=== PATIENT | female | born 1995 | race Two or more races ===

== ENCOUNTER 2017-05-04 22:59 | Emergency (ER) | payer OTHER ==
[2017-05-05] MEDS ORDERED: NORMAL SALINE 1000 ML 1,000 ML IV ONE ×2 (00:09→02:08)
--- NOTE | 2017-05-05 00:14 | ER Document Report ---
ED Medical Screen (RME) - General Chief Complaint: Nausea/Vomiting Stated Complaint: NAUSEA, VOMITING Time Seen by Provider: 05/04/17 23:58 Notes: 21-year-old female, comes by EMS for chief complaint of multiple episodes of vomiting and diarrhea today along with an episode where she got out of the shower, felt lightheaded, fell onto a step stool, and believes she passed out. Relative at bedside states that she had difficulty getting patient up and she thinks she was passed out. Patient has vomited twice since as well. Patient reports a mild headache. She denies fever. She had a recent endoscopy and colonoscopy with no concerning abnormalities. TRAVEL OUTSIDE OF THE [place] IN LAST 30 DAYS: No - Related Data Allergies/Adverse Reactions: No Known Allergies Allergy (Unverified 05/04/17 23:15) Past Medical History Renal/ Medical History: Denies: Hx Peritoneal Dialysis Physical Exam - Vital signs Vitals: Temp Pulse Resp BP Pulse Ox 99.1 F 113 H 18 119/56 L 100 05/04/17 23:07 05/04/17 23:07 05/04/17 23:07 05/04/17 23:07 05/04/17 23:07 - Cardiovascular Rhythm: Regular, Tachycardia Heart sounds: Normal auscultation, S1 appreciated, S2 appreciated - Abdominal Tenderness: Tender - mild generalized tenderness; limited by sitting position Course - Re-evaluation Re-evalutation: Patient did not pass out because of head injury, felt lightheaded and fell reportedly, patient with unchanged symptoms afterwards, questionable if she even passed out, no signs of head injury, alert and oriented, no deficits, well- appearing except for tachycardia. No indication for CT of the head at this time. - Vital Signs Vital signs: Temp Pulse Resp BP Pulse Ox 99.1 F 113 H 18 119/56 L 100 05/04/17 23:07 05/04/17 23:07 05/04/17 23:07 05/04/17 23:07 05/04/17 23:07
[2017-05-05 01:09] LABS: HEMATOCRIT 39.1 % (36.0-47.0); HEMOGLOBIN 13.1 g/dL (12.0-15.5); HGB HCT DIFFERENCE 0.2; MEAN CORPUSCULAR HEMOGLOBIN 27.2 pg (27.0-33.4); MEAN CORPUSCULAR HGB CONC 33.4 g/dL (32.0-36.0); MEAN CORPUSCULAR VOLUME 81 fl (80-97)
[2017-05-05 01:20] LABS: APPEARANCE,URINE SLIGHTLY-CLOUDY; BILIRUBIN,URINE NEGATIVE (NEGATIVE); GLUCOSE, URINE NEGATIVE (NEGATIVE); KETONES,URINE 80 mg/dL (NEGATIVE); LEUKOCYTE ESTERASE,URINE NEGATIVE (NEGATIVE); NITRITE,URINE NEGATIVE (NEGATIVE); PROTEIN,URINE NEGATIVE (NEGATIVE); URINE SPECIFIC GRAVITY 1.025; UROBILINOGEN,URINE NEGATIVE mg/dL (<2.0)
[2017-05-05 01:27] LABS: BAND NEUTROPHILS % (MANUAL) 7 % (3-5); BASOPHILS % (MANUAL) 1 % (0-2); EOSINOPHILS % (MANUAL) 0 % (0-6); LYMPHOCYTES % (MANUAL) 2 % (13-45); TOTAL CELLS COUNTED 100
[2017-05-05 01:29] LABS: ALANINE AMINOTRANSFERASE 24 U/L (9-52); ALBUMIN 4.6 g/dL (3.5-5.0); ALKALINE PHOSPHATASE 104 U/L (38-126); ANION GAP 14 (5-19); ASPARTATE AMINO TRANSFERASE 20 U/L (14-36); BILIRUBIN,DIRECT 0.3 mg/dL (0.0-0.4); BILIRUBIN,TOTAL 0.9 mg/dL (0.2-1.3); BLOOD UREA NITROGEN 18 mg/dL (7-20); CALCIUM 9.6 mg/dL (8.4-10.2); CARBON DIOXIDE 20 mmol/L (22-30); CHLORIDE 108 mmol/L (98-107); CREATININE RESULT 0.76 mg/dL (0.52-1.25); GLUCOSE 107 mg/dL (75-110); LIPASE 93.3 U/L (23-300); POTASSIUM 4.3 mmol/L (3.6-5.0); SODIUM 142.1 mmol/L (137-145); TOTAL PROTEIN 8.6 g/dL (6.3-8.2)
[2017-05-05 01:31] LABS: OVALOCYTES SLIGHT; POIKILOCYTOSIS SLIGHT; TEAR DROP CELLS SLIGHT; TOXIC VACUOLATION PRESENT
[2017-05-05] MEDS ORDERED: PROMETHAZINE HCL 25 MG TABLET PO ONE (02:14)
--- NOTE | 2017-05-05 02:16 | ER Document Report ---
ED GI/ - General Chief Complaint: Nausea/Vomiting Stated Complaint: NAUSEA, VOMITING Time Seen by Provider: 05/04/17 23:58 Notes: Patient is a 21-year-old female, comes by EMS for chief complaint of multiple episodes of vomiting and diarrhea today along with an episode where she got out of the shower, felt lightheaded, fell onto a step stool, and believes she passed out. Relative at bedside states that she had difficulty getting patient up and she thinks she was passed out. Patient has vomited twice since as well. Patient reports a mild headache. She denies fever. She had a recent endoscopy and colonoscopy with no concerning abnormalities. TRAVEL OUTSIDE OF THE [place] IN LAST 30 DAYS: No - Related Data Allergies/Adverse Reactions: No Known Allergies Allergy (Unverified 05/04/17 23:15) Past Medical History - General Information source: Patient, Relative - Social History Smoking Status: Never Smoker Frequency of alcohol use: None Drug Abuse: None Lives with: Family Family History: Reviewed & Not Pertinent Patient has suicidal ideation: No Patient has homicidal ideation: No - Medical History Medical History: Negative Renal/ Medical History: Denies: Hx Peritoneal Dialysis Surgical Hx: Negative - Immunizations Immunizations up to date: Yes Hx Diphtheria, Pertussis, Tetanus Vaccination: Yes Review of Systems - Review of Systems Constitutional: No symptoms reported EENT: No symptoms reported Cardiovascular: See HPI Respiratory: No symptoms reported Gastrointestinal: See HPI Genitourinary: No symptoms reported Female Genitourinary: No symptoms reported Musculoskeletal: No symptoms reported Skin: No symptoms reported Hematologic/Lymphatic: No symptoms reported Neurological/Psychological: See HPI Physical Exam - Vital signs Vitals: Temp Pulse Resp BP Pulse Ox 99.1 F 113 H 18 119/56 L 100 05/04/17 23:07 05/04/17 23:07 05/04/17 23:07 05/04/17 23:07 05/04/17 23:07 Interpretation: Normal - General General appearance: Appears well, Alert In distress: None - HEENT Head: Normocephalic, Atraumatic Eyes: Normal Conjunctiva: Normal Extraocular movements intact: Yes Eyelashes: Normal Pupils: PERRL Sinus: Normal Nasal: Normal Mouth/Lips: Normal Mucous membranes: Dry Pharynx: Normal Neck: Normal - Respiratory Respiratory status: No respiratory distress Chest status: Nontender Breath sounds: Normal Chest palpation: Normal - Cardiovascular Rhythm: Regular, Tachycardia Heart sounds: Normal auscultation, S1 appreciated, S2 appreciated Murmur: No - Abdominal Inspection: Normal Distension: No distension Bowel sounds: Normal Tenderness: Nontender. No: Tender - non-tender abdomen throughout, Mann's sign, Guarding Organomegaly: No organomegaly - Back Back: Normal, Nontender. No: Tender, CVA tenderness - Extremities General upper extremity: Normal inspection, Nontender, Normal color, Normal ROM , Normal temperature General lower extremity: Normal inspection, Nontender, Normal color, Normal ROM , Normal temperature, Normal weight bearing. No: Courtney's sign - Neurological Neuro grossly intact: Yes Cognition: Normal Orientation: AAOx4 Oswaldo Coma Scale Eye Opening: Spontaneous [place] Coma Scale Verbal: Oriented [place] Coma Scale Motor: Obeys Commands Oswaldo Coma Scale Total: 15 Speech: Normal Motor strength normal: LUE, RUE, LLE, RLE Sensory: Normal - Psychological Associated symptoms: Normal affect, Normal mood - Skin Skin Temperature: Warm Skin Moisture: Dry Skin Color: Normal Course - Re-evaluation Re-evalutation: Patient informs me that she has had extensive workup by gastroenterology as well including scans, ultrasound, and HIDA scan. She states all these came back normal including normal endoscopy and colonoscopy. The only positive findings were some internal hemorrhoids. Patient was given Linzess but states she does not like how it makes her feel. She has not had good results with Zofran or Reglan. EKG with sinus rhythm, normal VA interval, no concerning abnormalities. 05/05/17 patient definitely has evidence of dehydration with tachycardia, what appears to be stress response on CBC although there is no leukocytosis, bicarbonate is low, ketones in urine with elevated specific gravity. However chemistry, urine , CBC unremarkable otherwise. After IV fluids tachycardia resolved. Patient tolerating p.o. medications and p.o. fluids. I did discuss with patient and mother workup and her symptoms. 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 She states she feels ready to leave. I did encourage patient to return if she worsens in any way including uncontrolled vomiting, returned dizziness or passing out, or any other concerning symptoms. Patient and mother state understanding and agreement. - Vital Signs Vital signs: Temp Pulse Resp BP Pulse Ox 99.1 F 113 H 18 113/62 98 05/04/17 23:07 05/04/17 23:07 05/05/17 04:01 05/05/17 04:01 05/05/17 04:01 - Laboratory Result Diagrams: 05/05/17 00:59 05/05/17 00:59 Laboratory results interpreted by me: 05/05/17 05/05/17 05/05/17 00:45 00:59 00:59 Seg Neuts % (Manual) 87 H Band Neutrophils % 7 H Lymphocytes % (Manual) 2 L Abs Neuts (Manual) 9.4 H Abs Lymphs (Manual) 0.2 L Chloride 108 H Carbon Dioxide 20 L Total Protein 8.6 H Urine Ketones 80 H Urine Blood MODERATE H Discharge - Discharge Clinical Impression: Dehydration Nausea and vomiting Qualifiers: Vomiting type: unspecified Vomiting Intractability: non-intractable Qualified Code(s): R11.2 - Nausea with vomiting, unspecified Condition: Stable Disposition: HOME, SELF-CARE Additional Instructions: Your workup indicates dehydration, but no other abnormalities are noted. Continue to rehydrate. Take phenergan for nausea, take bentyl if needed for cramps. Follow up with Gastroenterology for additional management. Return to the ED for any returned or any new concerning symptoms - fever, abdominal pain, uncontrolled vomiting, etc. Prescriptions: Dicyclomine HCl [Bentyl 20 mg Tablet] 20 mg PO QID #20 tablet Promethazine HCl [Phenergan 25 mg Tablet] 1 - 2 tab PO Q6H PRN #20 tablet PRN Reason:
[2017-05-05] MEDS ORDERED: DIPHENHYDRAMINE HCL 50 MG/ML VIAL IV ONE (03:21)
[2017-05-05 04:02] VITALS: BP 113/62
--- NOTE | 2017-05-05 10:50 | EKG REPORT ---
SEVERITY:- NORMAL ECG - SINUS RHYTHM : Confirmed by: Noemi Hoyos 05-May-2017 10:49:00
== END 2017-05-05 04:01 | disposition home or self-care (01) ==
LOC: ER 22:59
DX: E86.0 Dehydration (principal); R11.2 Nausea with vomiting, unspecified; R19.7 Diarrhea, unspecified; W01.190A Fall on same level from slipping, tripping and stumbling with subsequent striking against furniture, initial encounter; Y93.E1 Activity, personal bathing and showering
CPT/HCPCS: 93005; 99284; 96374; 36415; 83690; 85025; 81025; 80053; 81001; 93010; J1200